=== PATIENT | female | born 1980 | race Caucasian/White ===

== ENCOUNTER 2022-01-27 10:16 | Outpatient (CLI) | payer OTHER ==
[~2022-01-27 10:16] MED LIST: INTEGRA F CAPS1 EACH PO; PRENATAL TABLE1 EAC1 PO; ZITHROMAX200 MG PO
== END 2022-01-27 10:26 | disposition home or self-care (01) ==
LOC: PPH VACUNA 10:16
PROVIDERS: ATTEND Emergency Medicine Pediatric Emergency Medicine
DX: Z23 Encounter for immunization (principal)